=== PATIENT | female | born 1980 | race American Indian/Alaskan Native ===

== ENCOUNTER → 2017-11-22 | Outpatient (CLI) | payer BC ==
[~2017-11-22] MED LIST: META800 PO; NAPR500 PO; NAPR550 PO; OXYACE5T PO; RXNAPNA550 PO
== END ==
LOC: LAB 14:39 → LAB SHORT 14:39
DX: J02.9 Acute pharyngitis, unspecified (principal)
CPT/HCPCS: 87081

== ENCOUNTER 2020-10-20 02:01 | Observation (INO) | payer BC ==
[~2020-10-20] VITALS: Ht 167.6 cm; Wt 79.5 kg
[~2020-10-20 02:01] MED LIST changes: +CYCL10 PO; +GUAI600T33 PO; +KETO10 PO; +PRENATAL TABLE1 EAC2 PO
[2020-10-20 02:18] LABS: BASOPHILS ABSOLUTE AUTO 0.06 K/mm3 (0.00-0.23); BASOPHILS PERCENT AUTO 1 % (0-2); EOSINOPHILS ABSOLUTE AUTO 0.04 K/mm3 (0.00-0.68); EOSINOPHILS PERCENT AUTO 1 % (0-6); Hematocrit 43.1 % (33.0-51.0); Hemoglobin 14.1 g/dL (11.5-16.0); IMMATURE GRAN ABSOLUTE AUTO 0.02 K/mm3 (0.00-0.10); IMMATURE GRAN PERCENT AUTO 0 % (0-1); LYMPHOCYTES ABSOLUTE AUTO 1.04 K/mm3 (0.84-5.20); LYMPHOCYTES PERCENT AUTO 12 % (21-46); MONOCYTES ABSOLUTE AUTO 0.48 K/mm3 (0.16-1.47); MONOCYTES PERCENT AUTO 6 % (4-13); Mean Corpuscular HGB 27.9 pg (26.0-34.0); Mean Corpuscular HGB Conc 32.7 g/dL (31.5-36.5); Mean Corpuscular Volume 85 fL (80-100); Mean Platelet Volume 9.7 fL (9.1-12.4); NEUTROPHILS ABSOLUTE AUTO 6.84 K/mm3 (1.96-9.15); NEUTROPHILS PERCENT AUTO 81 % (41-73); Platelet Count 264 K/mm3 (150-400); RDW Coefficient Variation 13.4 % (11.7-14.2); RDW Standard Deviation 41.9 fL (35.1-46.3); Red Blood Cell Count 5.05 M/mm3 (3.80-5.20); White Blood Cell Count 8.48 K/mm3 (4.00-11.30)
[2020-10-20 02:38] LABS: Alanine Aminotransfer (ALT/SGP 20 U/L (12-78); Albumin, Blood 3.8 g/dL (3.4-5.0); Alk Phos 89 U/L (50-136); Anion Gap 10 mmol/L (6-16); Aspartate Aminotrans (AST/SGOT 14 U/L (12-37); Bilirubin, Total 1.2 mg/dL (0.1-1.0); Blood Urea Nitrogen 12 mg/dL (8-24); Bun/Creatinine Ratio 20.8 (12.0-20.0); CO2, Blood 20 mmol/L (21-32); CPK Creatine Kinase 94 U/L (26-193); Calcium, Blood 8.9 mg/dL (8.5-10.1); Chloride, Blood 111 mmol/L (98-108); Creatinine, Blood 0.58 mg/dL (0.40-1.00); Globulin, Blood 3.9 g/dL (2.2-4.0); Glomerular Filtration Rate >60 (60-); Glucose, Blood 111 mg/dL (70-99); Potassium, Blood 3.6 mmol/L (3.5-5.5); Sodium, Blood 141 mmol/L (136-145); Total Protein, Blood 7.7 g/dL (6.4-8.2); Troponin I <0.015 ng/mL (0.000-0.040)
[2020-10-20 03:10] LABS: Source, Urine Clean Catch
[2020-10-20 03:12] LABS: Bilirubin, Urine Neg (Neg); Blood, Urine Neg (Neg); Glucose Qualitative, Urine Neg (Neg); Ketones, Urine 3+ (Neg); Leukocyte Esterase, Urine 1+ (Neg); Nitrite, Urine Neg (Neg); Protein, Urine Neg (Neg); Specific Gravity, Urine 1.015 (1.003-1.022); Urobilinogen, Urine NORM (Normal); pH, Urine 6.5 (5.0-8.0)
[2020-10-20 03:21] LABS: Appearance, Urine Clear (Clear); Bacteria Few /hpf; Color, Urine Yellow (P-Yellow); Mucus Light (0-Heavy); Red Blood Cells, Urine Not Seen /hpf (0-2); Squamous Epithelial Cells Few /hpf (Few); White Blood Cells, Urine Rare /hpf (0-5)
[2020-10-20 07:23] LABS: Influenza A, PCR Negative (NEGATIVE); Influenza B, PCR Negative (NEGATIVE); Resp Syncytial Virus, PCR Negative (NEGATIVE); SARS-Cov-2 (COVID-19) PCR, MMC Negative (NEGATIVE)
--- NOTE | 2020-10-20 11:02 | NUR ---
Echocardiogram performed by Tara Jackson under my supervision.
[2020-10-20] MEDS ORDERED: ACET325 PO (15:53)
--- NOTE | 2020-10-20 17:10 | NUR ---
DISCHARGE SUMMARY PT A/O X4 AND IND IN THE ROOM. ADMITTED FOR POSSIBLE ALLERGIC REACTION FOLLOWING THE SECOND DOSE OF THE COVID VACCINE. PT C/O OF HEADACHE AND FEVER. MEDICATED PER EMR X1 AND GIVEN ICE PACKS. SYMPTOMS EFFECTIVELY MANAGED. HAD ECHO THIS AM. NORMAL SINUS ON TELE. BESIDES FEVER, VSS. DISCHARGED HOME AND DRIVEN HOME BY SIGNIFICANT OTHER.
== END 2020-10-20 17:02 | disposition home or self-care (01) ==
LOC: ER 02:01 → MEDS 02:02
PROVIDERS: Emergency Medicine; ADMIT Family Medicine
DX: R07.9 Chest pain, unspecified (principal); R51.9 Headache, unspecified; M79.10 Myalgia, unspecified site; T50.B95A Adverse effect of other viral vaccines, initial encounter; Z79.899 Other long term (current) drug therapy
CPT/HCPCS: 0241U; 36415; 71046; 80053; 81001; 82550; 83605; 84484; 85025; 87040; 93005; 93010; 93306; 96374; 96375; 96376; 99285-25; A9270; G0378; J1885; J2405; J3010; J7030

== ENCOUNTER 2021-03-16 09:44 | Emergency (ER) | payer BC ==
[~2021-03-16] VITALS: Ht 167.6 cm; Wt 79.4 kg
[~2021-03-16 09:44] MED LIST changes: +ACET325 PO
[2021-03-16] MEDS ORDERED: PROM25 PO (12:02)
[2021-03-16] MEDS ORDERED: IBUP600 PO (12:02)
[2021-03-16] MEDS ORDERED: DIPH25 PO (12:02)
[2021-03-16] MEDS ORDERED: ALLEGRA ALLERG180 MG PO (12:02)
== END 2021-03-16 12:22 | disposition home or self-care (01) ==
LOC: ER 09:44
DX: R51.9 Headache, unspecified (principal)
CPT/HCPCS: 70450; 96374; 96375; 99284-25; J1200; J1885; J2550

== ENCOUNTER → 2024-02-06 | Outpatient (CLI) | payer BC | LOC: LAB SHORT 15:15 → LAB 15:15 | DX: N84.1 Polyp of cervix uteri (principal); Z01.419 Encounter for gynecological examination (general) (routine) without abnormal findings ==

== ENCOUNTER → 2024-04-28 | Outpatient (CLI) | payer BC ==
[~2024-04-28] MED LIST changes: +ALBU90OI INH; +ALLEGRA ALLERG180 MG PO; +DIPH25 PO; +IBUP600 PO; +PROM25 PO; +Prednisone20 MG PO; +Tamiflu75 MG PO
== END ==
LOC: LAB SHORT 13:15 → LAB 13:15
DX: N93.8 Other specified abnormal uterine and vaginal bleeding (principal); B97.7 Papillomavirus as the cause of diseases classified elsewhere
CPT/HCPCS: 88305